=== PATIENT | female | born 1955 | race Caucasian/White ===

== ENCOUNTER 2019-08-01 12:24 | Emergency (ER) | payer MEDICARE ==
[~2019-08-01] VITALS: Ht 152.4 cm; Wt 45.4 kg
--- OUTSIDE RECORDS SUMMARY | 2019-08-01 12:27 | XMS REPORT ---
[facility] Unknown Phone Unavailable Care Team Providers Care [employer] Tr[employer] Name Role Phone Unavailable Unavailable Payers Payer Name Policy Type Policy Number Effective Date Expiration Date Problems This patient has no known problems. Allergies, Adverse Reactions, Alerts Allergy Name Allergy Type Status Severity Reaction(s) Onset Date Inactive Date Treating Clinician Comments No Known Allergies DA Active U 2019-07-31 00:00:00 ether DA Active SV 2017-12-19 00:00:00 clavulanic acid DA Active MO 2017-12-19 00:00:00 amoxicillin DA Active MO 2017-12-19 00:00:00 Medications This patient has no known medications. Encounters Start Date/Time End Date/Time Encounter Type Admission Type Attending [facility] Facility Care Department Encounter ID 2017-06-15 03:58:00 Inpatient [facility] [id number] 2018-04-03 00:00:00 2018-04-03 00:00:00 Outpatient [facility] [id number] 2018-02-18 00:00:00 2018-02-18 00:00:00 Outpatient [facility] [id number] 2017-12-18 00:00:00 2017-12-18 00:00:00 Outpatient [facility] [id number] 2017-11-19 00:00:00 2017-11-19 00:00:00 Outpatient [facility] [id number] 2017-11-19 00:00:00 2017-11-19 00:00:00 Outpatient [facility] [id number] 2017-11-19 00:00:00 2017-11-19 00:00:00 Outpatient [facility] [id number] 2017-11-19 00:00:00 2017-11-19 00:00:00 Outpatient [facility] [id number] 2017-11-16 00:00:00 2017-11-16 00:00:00 [facility]patient [facility] [id number] 2017-11-16 00:00:00 2017-11-16 00:00:00 Outpatient [facility] [id number] 2017-11-14 00:00:00 2017-11-14 00:00:00 Outpatient [facility] [id number] 2017-11-14 00:00:00 2017-11-14 00:00:00 Outpatient [facility] [id number] 2017-11-12 00:00:00 2017-11-12 00:00:00 Outpatient [facility] [id number] 2017-11-12 00:00:00 2017-11-12 00:00:00 Outpatient [facility] [id number] 2017-11-12 00:00:00 2017-11-12 00:00:00 Outpatient [facility] [id number] 2017-11-12 00:00:00 2017-11-12 00:00:00 Outpatient [facility] [id number] 2017-11-09 00:00:00 2017-11-09 00:00:00 Outpatient [facility] [id number] 2017-11-09 00:00:00 2017-11-09 00:00:00 Outpatient [facility] [id number] 2017-11-07 00:00:00 2017-11-07 00:00:00 Outpatient [facility] [id number] 2017-11-07 00:00:00 2017-11-07 00:00:00 Outpatient [facility] [id number] 2017-11-05 00:00:00 2017-11-05 00:00:00 Outpatient [facility] [id number] 2017-11-05 00:00:00 2017-11-05 00:00:00 Outpatient [facility] [id number] 2017-11-05 00:00:00 2017-11-05 00:00:00 Outpatient [facility] [id number] 2017-11-05 00:00:00 2017-11-05 00:00:00 Outpatient [facility] [id number] 2017-11-02 00:00:00 2017-11-02 00:00:00 Outpatient [facility] [id number] 2017-11-02 00:00:00 2017-11-02 00:00:00 Outpatient [facility] [id number] 2017-10-31 00:00:00 2017-10-31 00:00:00 Outpatient [facility] [id number] 2017-10-31 00:00:00 2017-10-31 00:00:00 Outpatient [facility] [id number] 2017-10-29 00:00:00 2017-10-29 00:00:00 Outpatient [facility] [id number] 2017-10-29 00:00:00 2017-10-29 00:00:00 Outpatient [facility] [id number] 2017-10-29 00:00:00 2017-10-29 00:00:00 Outpatient [facility] [id number] 2017-10-29 00:00:00 2017-10-29 00:00:00 Outpatient [facility] [id number] 2017-10-26 00:00:00 2017-10-26 00:00:00 Outpatient [facility] [id number] 2017-10-26 00:00:00 2017-10-26 00:00:00 Outpatient [facility] [id number] 2017-10-24 00:00:00 2017-10-24 00:00:00 Outpatient [facility] [id number] 2017-10-24 00:00:00 2017-10-24 00:00:00 Outpatient [facility] [id number] 2017-10-19 00:00:00 2017-10-19 00:00:00 Outpatient [facility] [id number] 2017-10-19 00:00:00 2017-10-19 00:00:00 Outpatient [facility] [id number] 2017-10-17 00:00:00 2017-10-17 00:00:00 Outpatient [facility] [id number] 2017-10-17 00:00:00 2017-10-17 00:00:00 Outpatient [facility] [id number] 2017-10-15 13:31:59 2017-10-15 13:31:59 Outpatient [facility] [id number] 2017-10-15 00:00:00 2017-10-15 00:00:00 Outpatient [facility] [id number] 2017-10-15 00:00:00 2017-10-15 00:00:00 Outpatient [facility] [id number] 2017-10-15 00:00:00 2017-10-15 00:00:00 Outpatient [facility] [id number] 2017-10-12 11:14:14 2017-10-12 11:14:14 Outpatient [facility] [id number] 2017-10-12 10:13:42 2017-10-12 10:13:42 Outpatient [facility] [id number] 2017-10-12 00:00:00 2017-10-12 00:00:00 Outpatient [facility] [id number] 2017-10-12 00:00:00 2017-10-12 00:00:00 Outpatient [facility] [id number] 2017-10-10 12:26:32 2017-10-10 12:26:32 Outpatient [facility] [id number] 2017-10-10 12:26:29 2017-10-10 12:26:29 Outpatient [facility] [id number] 2017-10-10 12:26:26 2017-10-10 12:26:26 Outpatient [facility] [id number] 2017-10-10 10:29:50 2017-10-10 10:29:50 Outpatient [facility] [id number] 2017-10-08 15:25:38 2017-10-08 15:25:38 Outpatient [facility] [id number] 2017-10-08 15:25:34 2017-10-08 15:25:34 Outpatient [facility] [id number] 2017-10-08 15:25:30 2017-10-08 15:25:30 Outpatient [facility] [id number] 2017-10-08 13:37:39 2017-10-08 13:37:39 Outpatient [facility] [id number] 2017-10-08 00:00:00 2017-10-08 00:00:00 Outpatient [facility] [id number] 2017-10-05 09:11:23 2017-10-05 09:11:23 Outpatient [facility] [id number] 2017-10-05 08:50:37 2017-10-05 08:50:37 Outpatient [facility] [id number] 2017-10-05 08:50:30 2017-10-05 08:50:30 Outpatient [facility] [id number] 2017-10-05 08:50:12 2017-10-05 08:50:12 Outpatient [facility] [id number] 2017-10-05 08:46:39 2017-10-05 08:46:39 Outpatient [facility] [id number] 2017-10-03 15:28:17 2017-10-03 15:28:17 Outpatient [facility] [id number] 2017-10-03 13:04:49 2017-10-03 13:04:49 Outpatient [facility] [id number] 2017-10-03 11:20:25 2017-10-03 11:20:25 Outpatient [facility] [id number] 2017-10-03 00:00:00 2017-10-03 00:00:00 Outpatient [facility] [id number] 2017-10-02 00:00:00 2017-10-02 00:00:00 Outpatient [facility] [id number] 2017-10-01 13:52:35 2017-10-01 13:52:35 Outpatient [facility] [id number] 2017-10-01 10:13:11 2017-10-01 10:13:11 Outpatient [facility] [id number] 2017-10-01 08:19:58 2017-10-01 08:19:58 Outpatient [facility] [id number] 2017-10-01 08:19:52 2017-10-01 08:19:52 Outpatient [facility] [id number] 2017-10-01 00:00:00 2017-10-01 00:00:00 Outpatient [facility] [id number] 2017-09-28 14:19:33 2017-09-28 14:19:33 Outpatient [facility] [id number] 2017-09-28 00:00:00 2017-09-28 00:00:00 Outpatient [facility] [id number] 2017-09-28 00:00:00 2017-09-28 00:00:00 Outpatient [facility] [id number] 2017-09-28 00:00:00 2017-09-28 00:00:00 Outpatient [facility] [id number] 2017-09-28 00:00:00 2017-09-28 00:00:00 Outpatient [facility] [id number] 2017-09-26 13:34:12 2017-09-26 13:34:12 Outpatient [facility] [id number] 2017-09-26 13:33:57 2017-09-26 13:33:57 Outpatient [facility] [id number] 2017-09-26 00:00:00 2017-09-26 00:00:00 Outpatient [facility] [id number] 2017-09-24 15:12:25 2017-09-24 15:12:25 Outpatient [facility] [id number] 2017-09-24 12:43:52 2017-09-24 12:43:52 Outpatient [facility] [id number] 2017-09-24 12:43:37 2017-09-24 12:43:37 Outpatient [facility] [id number] 2017-09-24 12:43:28 2017-09-24 12:43:28 Outpatient [facility] [id number] 2017-09-24 10:03:22 2017-09-24 10:03:22 Outpatient [facility] [id number] 2017-09-21 10:20:40 2017-09-21 10:20:40 Outpatient [facility] [id number] 2017-09-21 10:04:37 2017-09-21 10:04:37 Outpatient [facility] [id number] 2017-09-21 00:00:00 2017-09-21 00:00:00 Outpatient [facility] [id number] 2017-09-21 00:00:00 2017-09-21 00:00:00 Outpatient [facility] [id number] 2017-09-19 10:57:57 2017-09-19 10:57:57 Outpatient [facility] [id number] 2017-09-19 10:57:54 2017-09-19 10:57:54 Outpatient [facility] [id number] 2017-09-19 10:57:49 2017-09-19 10:57:49 Outpatient [facility] [id number] 2017-09-19 10:57:45 2017-09-19 10:57:45 Outpatient [facility] [id number] 2017-09-17 15:07:26 2017-09-17 15:07:26 Outpatient [facility] [id number] 2017-09-17 13:58:29 2017-09-17 13:58:29 Outpatient [facility] [id number] 2017-09-17 09:16:34 2017-09-17 09:16:34 Outpatient [facility] [id number] 2017-09-17 09:16:31 2017-09-17 09:16:31 Outpatient [facility] [id number] 2017-09-17 09:16:26 2017-09-17 09:16:26 Outpatient [facility] [id number] 2017-09-17 09:16:23 2017-09-17 09:16:23 Outpatient [facility] [id number] 2017-09-14 10:46:49 2017-09-14 10:46:49 Outpatient [facility] [id number] 2017-09-14 10:46:39 2017-09-14 10:46:39 Outpatient [facility] [id number] 2017-09-14 10:46:16 2017-09-14 10:46:16 Outpatient [facility] [id number] 2017-09-14 10:46:08 2017-09-14 10:46:08 Outpatient [facility] [id number] 2017-09-12 12:02:51 2017-09-12 12:02:51 Outpatient [facility] [id number] 2017-09-12 11:30:32 2017-09-12 11:30:32 Outpatient [facility] [id number] 2017-09-12 08:27:09 2017-09-12 08:27:09 Outpatient [facility] [id number] 2017-09-12 00:00:00 2017-09-12 00:00:00 Outpatient [facility] [id number] 2017-09-11 00:00:00 2017-09-11 00:00:00 Outpatient [facility] [id number] 2017-09-10 16:25:10 2017-09-10 16:25:10 Outpatient [facility] [id number] 2017-09-10 00:00:00 2017-09-10 00:00:00 Outpatient [facility] [id number] 2017-09-10 00:00:00 2017-09-10 00:00:00 Outpatient [facility] [id number] 2017-09-10 00:00:00 2017-09-10 00:00:00 Outpatient [facility] [id number] 2017-09-07 14:18:17 2017-09-07 14:18:17 Outpatient [facility] [id number] 2017-09-07 14:18:12 2017-09-07 14:18:12 Outpatient [facility] [id number] 2017-09-07 14:18:08 2017-09-07 14:18:08 Outpatient [facility] [id number] 2017-09-07 14:18:04 2017-09-07 14:18:04 Outpatient [facility] [id number] 2017-09-07 12:20:50 2017-09-07 12:20:50 Outpatient [facility] [id number] 2017-09-05 16:14:34 2017-09-05 16:14:34 Outpatient [facility] [id number] 2017-09-05 10:58:01 2017-09-05 10:58:01 Outpatient [facility] [id number] 2017-09-05 00:00:00 2017-09-05 00:00:00 Outpatient [facility] [id number] 2017-09-05 00:00:00 2017-09-05 00:00:00 Outpatient [facility] [id number] 2017-09-03 12:53:25 2017-09-03 12:53:25 Outpatient [facility] [id number] 2017-09-03 12:53:08 2017-09-03 12:53:08 Outpatient [facility] [id number] 2017-09-03 12:52:52 2017-09-03 12:52:52 Outpatient [facility] [id number] 2017-09-03 12:52:48 2017-09-03 12:52:48 Outpatient [facility] [id number] 2017-08-31 12:34:46 2017-08-31 12:34:46 Outpatient [facility] [id number] 2017-08-31 12:34:35 2017-08-31 12:34:35 Outpatient [facility] [id number] 2017-08-31 12:13:36 2017-08-31 12:13:36 Outpatient [facility] [id number] 2017-08-31 00:00:00 2017-08-31 00:00:00 Outpatient [facility] [id number] 2017-08-29 15:30:08 2017-08-29 15:30:08 Outpatient [facility] [id number] 2017-08-29 15:29:51 2017-08-29 15:29:51 Outpatient [facility] [id number] 2017-08-29 11:19:54 2017-08-29 11:19:54 Outpatient [facility] [id number] 2017-08-29 00:00:00 2017-08-29 00:00:00 Outpatient [facility] [id number] 2017-08-28 08:44:22 2017-08-28 08:44:22 Outpatient [facility] [id number] 2017-08-27 14:42:35 2017-08-27 14:42:35 Outpatient [facility] [id number] 2017-08-27 12:49:06 2017-08-27 12:49:06 Outpatient [facility] [id number] 2017-08-27 12:48:55 2017-08-27 12:48:55 Outpatient [facility] [id number] 2017-08-27 08:10:29 2017-08-27 08:10:29 Outpatient [facility] [id number] 2017-08-27 08:10:25 2017-08-27 08:10:25 Outpatient [facility] [id number] 2017-08-27 00:00:00 2017-08-27 00:00:00 Outpatient [facility] [id number] 2017-08-21 00:00:00 2017-08-21 00:00:00 Outpatient [facility] [id number] 2017-08-20 00:00:00 2017-08-20 00:00:00 Outpatient [facility] [id number] 2017-08-17 10:19:23 2017-08-17 10:19:23 Outpatient [facility] [id number] 2017-08-17 07:59:32 2017-08-17 07:59:32 Outpatient [facility] [id number] 2017-08-14 12:41:27 2017-08-14 12:41:27 Outpatient [facility] [id number] 2017-08-14 08:51:21 2017-08-14 08:51:21 Outpatient [facility] [id number] 2017-08-07 00:00:00 2017-08-07 00:00:00 Outpatient [facility] [id number] 2017-08-03 00:00:00 2017-08-03 00:00:00 Outpatient [facility] [id number] 2017-07-31 08:55:44 2017-07-31 08:55:44 Outpatient [facility] [id number] 2017-07-31 00:00:00 2017-07-31 00:00:00 Outpatient [facility] [id number] 2017-07-17 13:05:06 2017-07-17 13:05:06 Outpatient [facility] [id number] 2017-07-17 08:43:02 2017-07-17 08:43:02 Outpatient [facility] [id number] 2017-07-10 00:00:00 2017-07-10 00:00:00 Outpatient [facility] [id number] 2017-07-03 13:34:04 2017-07-03 13:34:04 Outpatient [facility] [id number] 2017-07-03 07:46:57 2017-07-03 07:46:57 Outpatient [facility] [id number] 2017-07-02 00:00:00 2017-07-02 00:00:00 Outpatient [facility] [id number] 2017-06-25 13:31:28 2017-06-25 13:31:28 Outpatient [facility] [id number] 2017-06-14 14:55:19 2017-06-14 14:55:19 Emergency [facility] [id number] 2017-06-14 14:44:28 2017-06-14 14:44:28 Emergency [facility] [id number] 2017-06-09 23:07:08 2017-06-09 23:07:08 Emergency [facility] [id number] 2017-06-09 23:06:08 2017-06-09 23:06:08 Emergency [facility] [id number] 2017-06-09 22:51:08 2017-06-09 22:51:08 Emergency [facility] [id number] 2017-06-08 00:00:00 2017-06-08 00:00:00 Outpatient [facility] [id number] 2017-05-03 00:00:00 2017-05-03 00:00:00 Outpatient [facility] [id number] 2017-04-13 00:00:00 2017-04-13 00:00:00 Outpatient [facility] [id number] 2017-02-16 10:32:19 2017-02-16 10:32:19 Outpatient [facility] [id number] 2017-02-08 09:33:01 2017-02-08 09:33:01 Outpatient [facility] [id number] 2016-12-25 14:42:48 2016-12-25 14:42:48 Outpatient [facility] [id number] 2016-11-16 11:16:06 2016-11-16 11:16:06 Outpatient [facility] [id number] 2016-11-16 10:19:44 2016-11-16 10:19:44 Outpatient [facility] [id number] 2016-11-02 13:01:00 2016-11-02 13:01:00 Outpatient [facility] [id number] 2016-10-16 08:09:43 2016-10-16 08:09:43 Outpatient [facility] [id number] Results Test Description Test Time Test Comments Text Results Atomic Results Result Comments DRUGS OF ABUSE SCREEN UR 2019-07-31 23:59:00 UA PH DIPSTICK (test code=VLADIMIR) 6.0 5.0-8.0 URN COCAINE (test code=COCAURN) NEGATIVE <300 ng/mL URN CANNABINOIDS (test code=CANNABURN) NEGATIVE <50 ng/mL URN AMPHETAMINE (test code=AMPHETURN) POSITIVE <1000 ng/mL This test provides only a preliminary test result. A morespecific alternate chemical method must be used in order toobtain a confirmed analytical result. Gas chromatography/mass spectrometry (GC/MS) is thepreferred confirmatory method. Other chemical confirmationmethods are available. Clinical consideration and professional judgment should be applied to any drug of abusetest result, particularly when preliminary positive resultsare used.Unconfirmed screening results must not be used fornon-medical purposes (e.g., employment testing, legaltesting). URN BARBITURATE (test code=BARBITURN) NEGATIVE <200 ng/mL URN BENZODIAZEPINE (test code=BENZOURN) NEGATIVE <200 ng/mL URN OPIATES (test code=OPIATURN) POSITIVE <300 ng/mL This test provides only a preliminary test result. A morespecific alternate chemical method must be used in order toobtain a confirmed analytical result. Gas chromatography/mass spectrometry (GC/MS) is thepreferred confirmatory method. Other chemical confirmationmethods are available. Clinical consideration and professional judgment should be applied to any drug of abusetest result, particularly when preliminary positive resultsare used.Unconfirmed screening results must not be used fornon-medical purposes (e.g., employment testing, legaltesting). URN PHENCYCLIDINE (PCP) (test code=PHENCURN) NEGATIVE <25 ng/mL URN METHADONE (test code=METHAURN) NEGATIVE <300 ng/mL DRUGS OF ABUSE SCREEN [id number] 23:39:00* Test Item Value Reference Range Comments UA PH DIPSTICK (test code=VLADIMIR) 6.0 5.0-8.0 URN COCAINE (test code=COCAURN) <300 ng/mL URN CANNABINOIDS (test code=CANNABURN) <50 ng/mL URN AMPHETAMINE (test code=AMPHETURN) <1000 ng/mL URN BARBITURATE (test code=BARBITURN) <200 ng/mL URN BENZODIAZEPINE (test code=BENZOURN) <200 ng/mL URN OPIATES (test code=OPIATURN) <300 ng/mL URN PHENCYCLIDINE (PCP) (test code=PHENCURN) <25 ng/mL URN METHADONE (test code=METHAURN) <300 ng/mL BASIC METABOLIC [id number] 21:28:00* Test Item Value Reference Range Comments SODIUM (test code=NA) 136 mmol/L 136-145 POTASSIUM (test code=K) 3.8 mmol/L 3.5-5.1 CHLORIDE (test code=CL) 106.0 mmol/L 98-107 CARBON DIOXIDE (test code=CO2) 24.0 mmol/L 21-32 ANION GAP (test code=GAP) 9.8 10-20 GLUCOSE (test code=GLU) 95 mg/dL 74-106 BLOOD UREA NITROGEN (test code=BUN) 14 mg/dL 7-18 GLOMERULAR FILTRATION RATE (test code=GFR) > 60 mL/min >=60 Estimated GFR by using Modified MDRD formula.Chronic kidney disease is defined as either kidney damageor GFR <60 mL/min/1.73 m2 for >3 months. CREATININE (test code=CREAT) 0.70 mg/dL 0.55-1.02 Note change in reference range due to change in reagent. BUN/CREATININE RATIO (test code=BUN/CREA) 20.0 10-20 CALCIUM (test code=CA) 9.1 mg/dL 8.5-10.1 HEPATIC FUNCTION [id number] 21:28:00* Test Item Value Reference Range Comments TOTAL PROTEIN (test code=PROT) 7.8 gram/dL 6.4-8.2 ALBUMIN (test code=ALB) 3.7 g/dL 3.4-5.0 GLOBULIN (test code=GLOB) 4.1 gram/dL 2.7-4.2 ALBUMIN/GLOBULIN RATIO (test code=A/G) 0.9 0.75-1.50 BILIRUBIN TOTAL (test code=BILT) 0.40 mg/dL 0.0-1.0 BILIRUBIN DIRECT (test code=BILD) 0.07 mg/dL 0.0-0.20 SGOT/AST (test code=AST) 18 IUnit/L 15-37 SGPT/ALT (test code=ALT) 29 IUnit/L 12-78 ALKALINE PHOSPHATASE TOTAL (test code=ALKP) 92 IUnit/L 45-117 Note change in reference range due to change in reagent. [id number] 21:28:00* Test Item Value Reference Range Comments ALCOHOL (test code=ALC) < 3 mg/dL 0.0-3.0 INTERPRETIVE DATA NOTE: POSITIVE SCREENING RESULTS SHOULD BE CONSIDERED PRESUMPTIVE.WHEN COLLECTED FOR MEDICAL PURPOSES ONLY. SPECIMEN WILL NOTBE COLLECTED BY CHAIN OF CUSTODY.IF A CONFIRMATION OF POSITIVE RESULTS IS DESIRED, ACONFIRMATION TEST MUST BE REQUESTED BY THE PHYSICIAN AT ANADDITIONAL CHARGE TO THE PATIENT. BASIC METABOLIC [id number] 21:16:00* Test Item Value Reference Range Comments SODIUM (test code=NA) 136 mmol/L 136-145 POTASSIUM (test code=K) 3.8 mmol/L 3.5-5.1 CHLORIDE (test code=CL) 106.0 mmol/L 98-107 CARBON DIOXIDE (test code=CO2) mmol/L 21-32 ANION GAP (test code=GAP) 10-20 GLUCOSE (test code=GLU) mg/dL 74-106 BLOOD UREA NITROGEN (test code=BUN) mg/dL 7-18 GLOMERULAR FILTRATION RATE (test code=GFR) mL/min >=60 CREATININE (test code=CREAT) mg/dL 0.55-1.02 BUN/CREATININE RATIO (test code=BUN/CREA) 10-20 CALCIUM (test code=CA) mg/dL 8.5-10.1 HEPATIC FUNCTION [id number] 21:16:00* Test Item Value Reference Range Comments TOTAL PROTEIN (test code=PROT) gram/dL 6.4-8.2 ALBUMIN (test code=ALB) g/dL 3.4-5.0 GLOBULIN (test code=GLOB) gram/dL 2.7-4.2 ALBUMIN/GLOBULIN RATIO (test code=A/G) 0.75-1.50 BILIRUBIN TOTAL (test code=BILT) mg/dL 0.0-1.0 BILIRUBIN DIRECT (test code=BILD) mg/dL 0.0-0.20 SGOT/AST (test code=AST) IUnit/L 15-37 SGPT/ALT (test code=ALT) IUnit/L 12-78 ALKALINE PHOSPHATASE TOTAL (test code=ALKP) IUnit/L 45-117 [id number] 21:16:00* Test Item Value Reference Range Comments ALCOHOL (test code=ALC) mg/dL 0-3 PROTHROMBIN [id number] 21:12:00* Test Item Value Reference Range Comments PROTHROMBIN TIME PATIENT (test code=PTP) 11.5 seconds 9.0-14.0 INTERNATIONAL NORMAL RATIO (test code=INR) 1.0 0.8-1.2 The therapeutic range for oral anticoagulant therapy formost indications is an international normalized ratio (INR)of between 2.0 and 3.0. The recommended therapeutic INRrange for various clinical situations is listed below: Clinical Situation INR range Pulmonary e mbolism treatment (2.0-3.0)Venous thrombosis treatmentVenous thrombosis prophylaxis (high risk surgery)Prevention of systemic embolism from: Acute myocardial infarction Valvular heart disease Atrial fibrillation Mechanical prosthetic heart valves (2.5-3.5) IS PATIENT ON ANTICOAGULANTS? NTHROMBOPLASTIN TIME [id number] 21:12:00* Test Item Value Reference Range Comments THROMBOPLASTIN TIME PARTIAL (test code=PTT) 35.8 seconds 25.0-36.5 IS PATIENT ON ANTICOAGULANTS? NCBC W/O [id number] 21:02:00* Test Item Value Reference Range Comments WHITE BLOOD CELL (test code=WBC) 7.2 K/mm3 4.5-12.5 RED BLOOD CELL (test code=RBC) 4.92 mill/mm3 3.7-5.2 HEMOGLOBIN (test code=HGB) 15.0 gram/dL 11.5-15.5 HEMATOCRIT (test code=HCT) 45.3 % 36.0-46.0 MEAN CELL VOLUME (test code=MCV) 92.1 fL 80-98 MEAN CELL HGB (test code=MCH) 30.5 picogram 27.0-33.0 MEAN CELL HGB CONCETRATION (test code=MCHC) 33.1 gram/dL 33.0-36.0 RED CELL DISTRIBUTION WIDTH (test code=RDW) 12.4 % 11.6-16.2 PLATELET COUNT (test code=PLT) 245 K/mm3 150-450 MEAN PLATELET VOLUME (test code=MPV) 8.8 fL 6.7-11.0 CBC W/O [id number] 21:00:00* Test Item Value Reference Range Comments WHITE BLOOD CELL (test code=WBC) K/mm3 4.5-12.5 RED BLOOD CELL (test code=RBC) mill/mm3 3.7-5.2 HEMOGLOBIN (test code=HGB) 15.0 gram/dL 11.5-15.5 HEMATOCRIT (test code=HCT) 45.3 % 36.0-46.0 MEAN CELL VOLUME (test code=MCV) fL 80-98 MEAN CELL HGB (test code=MCH) picogram 27.0-33.0 MEAN CELL HGB CONCETRATION (test code=MCHC) gram/dL 33.0-36.0 RED CELL DISTRIBUTION WIDTH (test code=RDW) % 11.6-16.2 PLATELET COUNT (test code=PLT) K/mm3 150-450 MEAN PLATELET VOLUME (test code=MPV) fL 6.7-11.0 - XR KNEE 3 V [id number] 20:49:00 FAX: Aida Daniels MD [place]: [address] St: PRE Name: ROSE KELLY [facility] : [birth year] Age/S: 64/F Chava Martinncer [facility]ly [facility] Unit #: [id number] Loc: [place] [address] Phys: Aida Daniels MD Acct: [id number] Dis Date: Status: PRE ER PHONE #: [phone] Exam Date: 07/31/20192039 FAX #: [phone] Reason: KNEE PAIN EXAMS: CPT CODE: [id number] XR KNEE 3 V LT [address]4762 HISTORY: Pain. JOLIE RISON: None available. Location: TH. 3 views of the left hip: No acute fracture or dislocation. Hip joint is narrowed . No AVN. The trabecular pattern and mineralization are normal. Soft ti ssues are normal. Symphysis is well opposed. IMPRESSION: No acute fracture or dislocation. Narrowed hip joint without AVN. 3 views of the left knee: No acute frac ture or dislocation. Tricompartment joint space narrowing. No osteocho ndral lesions. Articular surfaces are well marginated. No joint fluid. Phleboliths. Osteopenia. IMPRESSION: No a cute fracture or dislocation. Tricompartment joint space narrowing. 3 views of the left ankle: Nondisplac ed linear fracture of the distal tibial diaphysis and metaphysis. No in tra-articular extension. Nondisplaced fracture of the lateral malleolus as well. Soft tissue swelling. No osteochondral lesions. Ankle morti se is preserved. Metallic screw and plate stabilizing the plantar later al surface of the calcaneus. IMPRESSION: Acu te traumatic linear fracture of the distal tibial metaphysis and diaphys is. Nondisplaced transverse fracture of the lateral malleolus. Elec tronically Signed by Miguelina Holloway on 07/31/2019 at 204 Reported and signed by: Orlin Holloway M.D. PAGE 1 Signed Report (CONTINUED) FAX: Aida Daniels MD [place]: [address]: PRE Name: ROSE QUIROS [facility] : 1955 Age/S: 64/F [address] Unit #: [id number] Loc: [place] [address] Phys: Aida Daniels MD Acct: [id number] Dis Date: Status: PRE ER PHONE #: [phone] Exam Date: 07/31/20192039 FAX #: [phone] Reason: KNEE PAIN EXAMS: CPT CODE: [id number] XR KNEE 3 [place] [address] <Continued> CC: Aida Daniels MD Technologist: Jordan Starr RT(R) Trnscrd Date/Time/By: 07/31/2019 (2048) : By: [email or web address] Orig Print D/T: S: 07/31/2019 (2051) PAGE 2 Signed Report - XR ANKLE 3 + V [id number] 20:49:00 FAX: Aida Daniels MD [place]: St: PRE Name: ROSE KELLY [facility] : [birth year] Age/S: 64/F [address] Unit #: [id number] Loc: [place] [address] Phys: Aida Daniels MD Acct: [id number] Dis Date: Status: PRE ER PHONE #: [phone] Exam Date: 07/31/20192034 FAX #: [phone] Reason: ANKLE PAIN EXAMS: CPT CODE: [id number] XR ANKLE 3 + [place] [address] HISTORY: Pain. JOLIE RISON: None available. Location: TH. 3 views of the left hip: No acute fracture or dislocation. Hip joint is narrowed . No AVN. The trabecular pattern and mineralization are normal. Soft ti ssues are normal. Symphysis is well opposed. IMPRESSION: No acute fracture or dislocation. Narrowed hip joint without AVN. 3 views of the left knee: No acute frac ture or dislocation. Tricompartment joint space narrowing. No osteocho ndral lesions. Articular surfaces are well marginated. No joint fluid. Phleboliths. Osteopenia. IMPRESSION: No a cute fracture or dislocation. Tricompartment joint space narrowing. 3 views of the left ankle: Nondisplac ed linear fracture of the distal tibial diaphysis and metaphysis. No in tra-articular extension. Nondisplaced fracture of the lateral malleolus as well. Soft tissue swelling. No osteochondral lesions. Ankle morti se is preserved. Metallic screw and plate stabilizing the plantar later al surface of the calcaneus. IMPRESSION: Acu te traumatic linear fracture of the distal tibial metaphysis and diaphys is. Nondisplaced transverse fracture of the lateral malleolus. Elec tronically Signed by Miguelina Holloway on 07/31/2019 at 2048 Reported and signed by: Orlin Holloway M.D. PAGE 1 Signed Report (CONTINUED) FAX: Aida Daniels MD [place]: St: PRE Name: ROSE QUIROS [facility] : 1955 Age/S: 64/F [address] Unit #: [id number] Loc: [place] [address] Phys: Aida Daniels MD Acct: [id number] Dis Date: Status: PRE ER PHONE #: [phone] Exam Date: 07/31/20192034 FAX #: [phone] Reason: ANKLE PAIN EXAMS: CPT CODE: [id number] XR ANKLE 3 + V LT [address]53 <Continued> CC: Aida Daniels MD Technologist: Jordan Starr RT(R) Trnscrd Date/Time/By: 07/31/2019 (2048) : By: [email or web address] Orig Print D/T: S: 07/31/2019 (2051) PAGE 2 Signed Report - XR HIP W/PEL UNI 2+V [id number] 20:49:00 FAX: Aida Daniels MD [place]: St: PRE Name: ROSE KELLY [facility] : [birth year] Age/S: 64/F [address] [address] [facility] Unit #: [id number] Loc: [place] [address] Phys: Aida Daniels MD Acct: [id number] Dis Date: Status: PRE ER PHONE #: [phone] Exam Date: 07/31/20192034 FAX #: [phone] Reason: HIP PAIN EXAMS: CPT CODE: [id number] XR HIP W/PEL UNI 2+[place] [address] HISTORY: Pain. JOLIE RISON: None available. Location: TH. 3 views of the left hip: No acute fracture or dislocation. Hip joint is narrowed . No AVN. The trabecular pattern and mineralization are normal. Soft ti ssues are normal. Symphysis is well opposed. IMPRESSION: No acute fracture or dislocation. Narrowed hip joint without AVN. 3 views of the left knee: No acute frac ture or dislocation. Tricompartment joint space narrowing. No osteocho ndral lesions. Articular surfaces are well marginated. No joint fluid. Phleboliths. Osteopenia. IMPRESSION: No a cute fracture or dislocation. Tricompartment joint space narrowing. 3 views of the left ankle: Nondisplac ed linear fracture of the distal tibial diaphysis and metaphysis. No in tra-articular extension. Nondisplaced fracture of the lateral malleolus as well. Soft tissue swelling. No osteochondral lesions. Ankle morti se is preserved. Metallic screw and plate stabilizing the plantar later al surface of the calcaneus. IMPRESSION: Acu te traumatic linear fracture of the distal tibial metaphysis and diaphys is. Nondisplaced transverse fracture of the lateral malleolus. Elec tronically Signed by Miguelina Holloway on 07/31/2019 at 2048 Reported and signed by: Orlin Holloway M.D. PAGE 1 Signed Report (CONTINUED) FAX: Aida Daniels MD [place]: St: PRE Name: ROSE QUIROS [facility] : 1955 Age/S: 64/F [address] Unit #: [id number] Loc: [place] [address] Phys: Aida Daniels MD Acct: [id number] Dis Date: Status: PRE ER PHONE #: [phone] Exam Date: 07/31/20192034 FAX #: [phone] Reason: HIP PAIN EXAMS: CPT CODE: [id number] XR HIP W/PEL UNI 2+V [place] [address] <Continued> CC: Aida Daniels MD Technologist: Jordan Starr RT(R); ROSCOE QUEEN RT(R) Trnscrd Date/Time/By: 07/31/2019 (2048) : By: [email or web address] Orig Print D/T: S: 07/31/2019 (2051) PAGE 2 Signed Report
[2019-08-01] MEDS: ACETAMINOPHEN/CODEINE 300MG - 30MG TAB PO ONE ×2 (12:38→13:35)
[2019-08-01] MEDS ORDERED: ACETAMINOPHEN/CODEINE 300MG - 30MG TAB ONE (12:44)
[2019-08-01] MEDS ORDERED: HYDROCODONE/APAP 5MG-325MG TAB PO ONE (12:45)
--- NOTE | 2019-08-01 13:57 | Diagnostic Imaging Report ---
TECHNIQUE: Computed tomography imaging of the PELVIS was performed WITHOUT injected contrast using standard departmental protocols. Dose modulation, iterative reconstruction, and/or weight based adjustment of the mA/kV was utilized to reduce the radiation dose to as low as reasonably achievable. HISTORY: Left hip pain, trauma COMPARISON: None. FINDINGS: No displaced fracture. Soft tissue edema of the left lateral subcutaneous tissues of the hip and proximal thigh. 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 Pubic symphysis and sacroiliac joints are unremarkable. Degenerative disc disease at L4-5 and L5-S1. No soft tissue masses or fluid collections. IMPRESSION: Probable soft tissue contusion of the subcutaneous left hip and thigh. No fracture. Signed by: Dr. Marlo Islas M.D. on 08/01/2019 1:55 PM
--- NOTE | 2019-08-01 14:24 | Diagnostic Imaging Report ---
Exam: Left foot 3 views, ankle 3 views, and tibia 2 views History: Foot injury Comparison: None. Findings: Vertical linear lucency in the anteromedial distal tibial metaphysis may reflect fracture. No cortical disruption. Otherwise bones are unremarkable without fracture. Hardware within the calcaneus. Talonavicular joint degenerative arthrosis. Impression: Vertical linear lucency in the anteromedial distal tibial metaphysis may reflect nondisplaced medullary fracture. No cortical disruption. Signed by: Dr. Marlo Islas M.D. on 08/01/2019 2:21 PM
== END 2019-08-01 14:40 | disposition home or self-care (01) ==
LOC: ER 12:24
DX: M25.572 Pain in left ankle and joints of left foot (principal); M25.552 Pain in left hip; R26.2 Difficulty in walking, not elsewhere classified; V09.09XA Pedestrian injured in nontraffic accident involving other motor vehicles, initial encounter; Y92.488 Other paved roadways as the place of occurrence of the external cause
CPT/HCPCS: 72192; 99282